=== PATIENT | male | born 1950 | race Caucasian/White ===

== ENCOUNTER 2020-07-13 08:04 | Outpatient (CLI) | payer MEDICARE, SELFPAY ==
[2020-07-13 08:47] LABS: Basophils Absolute Auto 0.1 K/mm3 (0.0-0.1); Basophils Percent Auto 1.1 % (0.2-1.2); Eosinophils Absolute Auto 0.1 K/mm3 (0-0.3); Eosinophils Percent Auto 1.7 % (0-4.4); Hematocrit 46.4 % (42.0-52.0); Hemoglobin 15.7 g/dL (14.0-18.0); Immature Granulocyte Absolute 0.02 K/mm3 (0.00-0.031); Immature Granulocyte Percent A 0.3 % (0-0.5); Lymphocytes Absolute Auto 1.39 K/mm3 (0.9-3.2); Lymphocytes Percent Auto 21.6 % (18.3-44.2); Mean Corpuscular HGB Conc 33.8 g/dl (32-36); Mean Corpuscular Hemoglobin 33.9 pg (26-34); Mean Corpuscular Volume 100.2 fl (80-100); Mean Platelet Volume 10.1 fl (7.4-10.4); Monocytes Absolute Auto 0.5 K/mm3 (0.1-0.6); Neutrophils Absolute Auto 4.4 K/mm3 (1.3-6.7); Neutrophils Percent Auto 68.3 % (45.5-73.1); Platelet Count Result 269 k/mm3 (150-375); Red Blood Count 4.63 M/mm3 (4.6-6.20); Red Cell Distribution Width 12.1 % (11.5-14.5); White Blood Count 6.5 K/mm3 (4.5-10.0)
[2020-07-13 09:04] LABS: Alanine Aminotransferase 21 U/L (4-50); Albumin Level 4.3 g/dL (3.5-5.1); Alkaline Phosphatase 78 U/L (38-126); Anion Gap 7 mmol/L (8-16); Aspartate Amino Transferase 34 U/L (17-59); Bilirubin,Total 0.4 mg/dL (0.2-1.3); Blood Urea Nitrogen 10 mg/dL (9-20); Calcium 8.9 mg/dL (8.4-10.2); Carbon Dioxide 30 mmol/L (22-30); Chloride 102 mmol/L (98-107); Cholesterol 238 mg/dL (0-200); Estimated Glomerular Filt Rate > 60; Glucose 102 mg/dL (75-110); HDL Direct 63 mg/dL; Potassium 4.4 mmol/L (3.4-5.0); Sodium 139 mmol/L (137-145); Triglycerides 137 mg/dL (<150)
[2020-07-13 09:14] LABS: LDL Cholesterol Direct 140 mg/dL
[2020-07-13 09:34] LABS: Prostate Specific Antigen 1.3 ng/mL (< OR = 4.0)
== END 2020-07-13 08:05 | disposition home or self-care (01) ==
PROVIDERS: Nurse Practitioner; PCP Internal Medicine; Visit Provider Clinical Nurse Specialist
DX: D75.1 Secondary polycythemia (principal); Z13.228 Encounter for screening for other metabolic disorders; Z13.220 Encounter for screening for lipoid disorders; Z12.5 Encounter for screening for malignant neoplasm of prostate
CPT/HCPCS: 36415; 80053; 80061; 84153; 85025; G0103

== ENCOUNTER 2021-01-12 08:11 | Emergency (ER) | payer MEDICARE, SELFPAY ==
--- NOTE | ~2021-01-12 | XR_ITS ---
EXAMINATION: XR knee LT min 4V DATE: 01/12/2021 09:10 INDICATION: Left knee pain TECHNIQUE: Four views of the left knee were obtained. COMPARISON: None. FINDINGS: Alignment is normal. No fracture or osteochondral lesion. There is mild tricompartmental os teoarthritis characterized by tiny marginal osteophytes. There is a large joint effusion. Soft tissue s are unremarkable. IMPRESSION: 1. Large knee joint effusion. Reviewed, dictated and finalized at location A. [facility]
--- NOTE | ~2021-01-12 | XR_ITS ---
EXAMINATION: XR ankle LT min 3V, XR tibia fibula LT 2V EXAM DATE: 01/12/2021 09:46 INDICATION: Initial encounter following injury, with pain of the left ankle, tibia/fibula. Injury 2 d ays ago. TECHNIQUE: Left ankle frontal, lateral and oblique projections obtained and reviewed. Left tibia/fibu la frontal and lateral projections obtained and reviewed. There is no prior study for comparison. FINDINGS: There are healed left fibular and tibial distal diaphyseal fractures. The left ankle mort ise appears intact. Small to moderate size inferior calcaneal spur. There are no acute fractures or dislocations identified. There is no subcutaneous gas. The soft tissue is unremarkable. There ar e no radiopaque foreign bodies. IMPRESSION: 1. Left tibia, fibula, ankle exam without acute osseous findings. 2. Old tibia fibular fractures. Reviewed, dictated and finalized at location B. ER IMPRESSION: 1. Left tibia, fibula, ankle exam without acute osseous findings. 2. Old tibia fibular fractures.
[2021-01-12 08:25] VITALS: BP 152/80; PULSE 89; RESP 18; TEMP 36.7; O2SAT 99
[2021-01-12] MEDS: HYDROcodone/acetaminophen (*CRX) 7.5-325 MG TABLET 1 TAB PO (09:46)
--- NOTE | 2021-01-12 10:15 | ED.GENADULT ---
HPI - General Adult General Chief complaint: Fall <Omar Núñez PA-C - Last Filed: 01/12/21 10:21> Stated complaint: fall, left lower leg pain <Omar Núñez PA-C - Last Filed: 01/12/21 10:21> Time Seen by Provider: 01/12/21 09:05 <Omar Núñez PA-C - Last Filed: 01/12/21 10:21> Source: patient and family <Omar Núñez PA-C - Last Filed: 01/12/21 10:21> Mode of arrival: ambulatory <Omar Núñez PA-C - Last Filed: 01/12/21 10:21> Limitations: no limitations <Omar Núñez PA-C - Last Filed: 01/12/21 10:21> History of Present Illness HPI narrative: Patient is a 70-year-old male who presents with a left knee pain and leg pain status post ground-level fall stepping down from one room into another at his home patient notes that he had been drinking that night and was slightly intoxicated patient denies head injury syncope loss of consciousness. . Patient notes since he has been unable to bear weight on the left leg noting pain to the left knee and just below the left knee with mild pain of the ankle as well. Patient has been using crutches and is able to get around his home where he lives with his . Patient on arrival is in no distress and notes that the pain is only worse with weightbearing or activity <Omar Núñez PA-C - Last Filed: 01/12/21 10:21> Related Data Allergies/adverse reactions: Allergies Allergy/AdvReac Type Severity Reaction Status Date / Time No Known Allergies Allergy Unknown Unverified 01/12/21 08:33 <Omar Núñez PA-C - Last Filed: 01/12/21 10:21> Review of Systems Review of Systems: All systems reviewed & are unremarkable except as noted in HPI and below <Omar Núñez PA-C - Last Filed: 01/12/21 10:21> PMFSH Past Medical History Medical History: Medical History Erectile dysfunction Hyperlipidemia Memory impairment <RAISSA Duff Last Filed: 01/12/21 10:21> Family History Family History: Family History (Updated 07/07/20 @ 07:23 by Isha Mccann [facility]) Mother Patient's mother is in good health Polycythemia Hyperglycemia Father Patient's father is in good health <Omar Núñez PA-C - Last Filed: 01/12/21 10:21> Social History Social History: Social History Smoking status: Former smoker Second hand tobacco smoke exposure: No Smoking end date: 11/04/83 Alcohol intake: current Gender identity (if verbalized by the patient): Male <Omar Núñez PA-C - Last Filed: 01/12/21 10:21> Exam Narrative: Exam Narrative: GENERAL: Well-appearing, well-nourished, and in no acute distress. HEAD: Normocephalic, atraumatic. EYES: PERRLA and EOMI. ENT: Nares clear, no rhinorrhea or epistaxis. Mucous membranes moist. NECK: Supple. No adenopathy or masses. CHEST: Clear to auscultation. No respiratory distress. No wheezes rales or rhonchi HEART: Regular rate and rhythm. No murmur heard. Normal peripheral pulses. ABDOMEN: Soft, nontender, nondistended EXTREMITIES: Patient with tenderness of the knee just below the knee and at the level of the ankle with swelling of the left knee joint remainder of extremity palpated and nontender. The hip and pelvis were palpated and stable and nontender with good range of motion not eliciting any pain. No cervical thoracic or lumbar tenderness. SKIN: Warm, dry, no rash. NEURO: No focal deficits. Alert and oriented x3. Neurovascularly intact. Capillary refill less than 2 seconds PSYCH: Normal mood and affect. <Omar Núñez PA-C - Last Filed: 01/12/21 10:21> Course Course Emergency Course: Patient was evaluated in the emergency department for his leg pain and injury patient likely with internal derangement left knee as the etiology given the findings and the joint effusion patient will be discharged home with
[2021-01-12 10:46] VITALS: BP 158/88; PULSE 95; RESP 18; O2SAT 99
== END 2021-01-12 10:46 | disposition home or self-care (01) ==
PROVIDERS: Emergency Provider General Practice; PCP Internal Medicine
DX: S83.207A Unspecified tear of unspecified meniscus, current injury, left knee, initial encounter (principal); E78.5 Hyperlipidemia, unspecified; Z87.891 Personal history of nicotine dependence; W18.39XA Other fall on same level, initial encounter
CPT/HCPCS: 73564; 73590; 73610; 99284; A9270